=== PATIENT | female | born 1975 | race Caucasian/White ===

== ENCOUNTER 2018-01-07 12:41 | Outpatient (CLI) | payer OTHER | END 2018-01-07 12:42 | disposition home or self-care (01) | LOC: BICRAD 12:41 | PROVIDERS: ATTEND Family Medicine | DX: M54.5 Low back pain (principal); G80.1 Spastic diplegic cerebral palsy; M25.551 Pain in right hip | CPT/HCPCS: 72072; 72100 ==

== ENCOUNTER 2020-12-30 11:38 | Outpatient (CLI) | payer BC | END 2020-12-30 11:39 | disposition home or self-care (01) | LOC: BICRAD 11:38 | PROVIDERS: ATTEND Family Medicine | DX: M25.561 Pain in right knee (principal) ==

== ENCOUNTER 2021-04-23 10:49 | Inpatient (IN) | payer BC ==
[2021-04-23] MEDS ORDERED: Vancomycin HCl 25 MG/ML Oral PO SCH (14:00)
[2021-04-23] MEDS ORDERED: Acetaminophen 325 MG TAB PO PRN (14:00)
[2021-04-23] MEDS ORDERED: Polyethylene Glycol 3350 17 GM Packet PO PRN (14:03)
[2021-04-23] MEDS ORDERED: Diazepam 2 MG TAB PO PRN (14:03)
[2021-04-23] MEDS ORDERED: NS 0.9% w/ 20 MEQ KCL 1,000 ML/1,000 ML BAG IV SCH (14:15)
[2021-04-23] MEDS: Fidaxomicin 200 MG TAB PO SCH (20:21)
[2021-04-23] MEDS: metroNIDAZOLE 500 MG in Premix Bag 1 BAG IVPB SCH (20:22)
[2021-04-23] MEDS: Rosuvastatin 5 MG TAB PO SCH (20:22)
[2021-04-23] MEDS: Baclofen 10 MG TAB PO SCH (20:22)
[2021-04-24] MEDS: metroNIDAZOLE 500 MG in Premix Bag 1 BAG IVPB SCH ×3 (05:22→21:00)
[2021-04-24 06:27] LABS: #Eosinphils 0.1 thou/uL (0.0-0.7); #Lymphocytes 1.9 thou/uL (1.20-3.40); #Monocytes 0.9 thou/uL (0.11-0.59); #Neutrophils 8.4 thou/uL (1.40-6.50); %Basophils 0.3 % (0.0-1.0); %Eosinophils 0.8 % (0.0-10.0); %Lymphocytes 16.8 % (21.0-51.0); %Monocytes 7.7 % (0.0-10.0); %Neutrophils 74.5 % (42.0-75.0); Hemoglobin 13.4 g/dL (12.0-16.0); Mean Corpuscular HGB CONC 34.3 g/dL (32.0-36.0); Mean Corpuscular Hemoglobin 31.6 pg (27.0-31.0); Mean Corpuscular Volume 92.1 fL (78.0-98.0); Mean Platelet Volume 6.8 fL (7.4-10.4); Platelet Count 268 thou/uL (130-400); RBC Distribution Width 12.5 % (11.5-14.5); Red Blood Cell (RBC) Count 4.23 mill/uL (4.20-5.40); White Blood Cell (WBC) Count 11.3 thou/uL (4.8-10.8)
[2021-04-24 06:47] LABS: Anion Gap 9 mmol/L (10-20); BUN (Urea Nitrogen) 9 mg/dL (7.0-18.7); Calc. Creatinine Clearance 117 mL/min (70-130); Calcium 8.4 mg/dL (7.8-10.44); Carbon Dioxide 24 mmol/L (22-29); Chloride 111 mmol/L (98-107); Glucose 92 mg/dL (70-105); Potassium 4.1 mmol/L (3.5-5.1); Sodium 140 mmol/L (136-145)
[2021-04-24] MEDS: Fidaxomicin 200 MG TAB PO SCH ×2 (08:43→21:00)
[2021-04-24 11:49] VITALS: BMI 25.4
[2021-04-24] MEDS ORDERED: Ondansetron PF 4 MG/2 ML Vial IVP PRN (13:12)
[2021-04-24] MEDS: Baclofen 10 MG TAB PO SCH (20:59)
[2021-04-24] MEDS: Rosuvastatin 5 MG TAB PO SCH (21:00)
[2021-04-25] MEDS: metroNIDAZOLE 500 MG in Premix Bag 1 BAG IVPB SCH ×2 (06:23→13:16)
[2021-04-25 06:58] LABS: #Eosinphils 0.1 thou/uL (0.0-0.7); #Lymphocytes 1.6 thou/uL (1.20-3.40); #Monocytes 0.6 thou/uL (0.11-0.59); #Neutrophils 4.9 thou/uL (1.40-6.50); %Basophils 0.3 % (0.0-1.0); %Eosinophils 1.3 % (0.0-10.0); %Lymphocytes 22.2 % (21.0-51.0); %Monocytes 8.7 % (0.0-10.0); %Neutrophils 67.6 % (42.0-75.0); Hemoglobin 14.7 g/dL (12.0-16.0); Mean Corpuscular HGB CONC 34.4 g/dL (32.0-36.0); Mean Corpuscular Hemoglobin 31.6 pg (27.0-31.0); Mean Corpuscular Volume 91.9 fL (78.0-98.0); Mean Platelet Volume 6.6 fL (7.4-10.4); Platelet Count 327 thou/uL (130-400); RBC Distribution Width 12.4 % (11.5-14.5); Red Blood Cell (RBC) Count 4.65 mill/uL (4.20-5.40); White Blood Cell (WBC) Count 7.2 thou/uL (4.8-10.8)
[2021-04-25 07:30] LABS: Anion Gap 13 mmol/L (10-20); BUN (Urea Nitrogen) 10 mg/dL (7.0-18.7); Calc. Creatinine Clearance 111 mL/min (70-130); Calcium 9.1 mg/dL (7.8-10.44); Carbon Dioxide 25 mmol/L (22-29); Chloride 106 mmol/L (98-107); Glucose 97 mg/dL (70-105); Potassium 3.9 mmol/L (3.5-5.1); Sodium 140 mmol/L (136-145)
[2021-04-25] MEDS: Fidaxomicin 200 MG TAB PO SCH (08:07)
[2021-04-25 15:06] VITALS: BP 134/86; TEMP 97.8
[2021-04-25] MEDS ORDERED: Fidaxomicin 200 MG TAB PO SCH (16:00)
[2021-04-26] MEDS ORDERED: Fidaxomicin 200 MG TAB PO SCH (09:00)
== END 2021-04-25 16:46 | disposition home or self-care (01) | DRG 373 ==
LOC: T4-A 10:49
PROVIDERS: ADMIT Family Medicine; ATTEND Family Medicine
DX: A04.71 Enterocolitis due to Clostridium difficile, recurrent (principal); G80.9 Cerebral palsy, unspecified; E78.5 Hyperlipidemia, unspecified; I10 Essential (primary) hypertension; J45.909 Unspecified asthma, uncomplicated; Z99.3 Dependence on wheelchair; Z88.1 Allergy status to other antibiotic agents; Z88.5 Allergy status to narcotic agent; Z88.2 Allergy status to sulfonamides; Z88.8 Allergy status to other drugs, medicaments and biological substances; Z79.899 Other long term (current) drug therapy
CPT/HCPCS: 36415; 80048; 85025; J2405; J3480

== ENCOUNTER 2021-05-02 13:42 | Outpatient (CLI) | payer BC ==
[2021-05-02 21:15] LABS: SARS-CoV-2 PCR by NAA Not Detected (NotDetected)
== END 2021-05-02 13:43 | disposition home or self-care (01) ==
LOC: LABBT 13:42
PROVIDERS: ATTEND Internal Medicine Gastroenterology
DX: Z01.812 Encounter for preprocedural laboratory examination (principal); A49.8 Other bacterial infections of unspecified site; G80.9 Cerebral palsy, unspecified; Z20.822 Contact with and (suspected) exposure to COVID-19
CPT/HCPCS: U0003; U0005

== ENCOUNTER 2021-05-07 10:53 | Day surgery (SDC) | payer BC ==
[2021-05-06 14:04] VITALS: BMI 25.4
[2021-05-07] MEDS ORDERED: Midazolam HCl 2 mg/2 ml Vial ONE (12:25)
[2021-05-07] MEDS ORDERED: PROPOFOL 200 MG/20 ML VIAL ONE (12:39)
[2021-05-07] MEDS ORDERED: Lidocaine 1% PF 5 ML VIAL ONE (12:39)
== END 2021-05-07 14:35 | disposition home or self-care (01) ==
LOC: SDC 10:53
PROVIDERS: ATTEND Internal Medicine Gastroenterology
PROC: 3E0H8GC Introduction of Other Therapeutic Substance into Lower GI, Via Natural or Artificial Opening Endoscopic (ICD-10-PCS; principal; 2021-05-07)
DX: A04.72 Enterocolitis due to Clostridium difficile, not specified as recurrent (principal); J45.909 Unspecified asthma, uncomplicated; G80.9 Cerebral palsy, unspecified; E78.00 Pure hypercholesterolemia, unspecified; I10 Essential (primary) hypertension; Z88.1 Allergy status to other antibiotic agents; Z88.2 Allergy status to sulfonamides; Z88.5 Allergy status to narcotic agent; Z88.8 Allergy status to other drugs, medicaments and biological substances; Z98.890 Other specified postprocedural states; Z79.899 Other long term (current) drug therapy; Z91.02 Food additives allergy status
CPT/HCPCS: J2250; J2704

== ENCOUNTER 2022-07-06 14:56 | Inpatient (IN) | payer BC, OTHER ==
[~2022-07-06 14:56] MED LIST: Iopamidol-370 76% 500 ML 1 ML ONE
[2022-07-06] MEDS ORDERED: Ondansetron PF 4 MG/2 ML Vial ONE ×2 (15:54→20:09)
[2022-07-06 16:28] LABS: Hemoglobin 16.4 g/dL (12.0-16.0); Mean Corpuscular HGB CONC 34.8 g/dL (32.0-36.0); Mean Corpuscular Hemoglobin 31.8 pg (27.0-31.0); Mean Corpuscular Volume 91.5 fl (78.0-98.0); Mean Platelet Volume 6.8 fL (7.4-10.4); Platelet Count 338 10x3/uL (130-400); RBC Distribution Width 12.4 % (11.5-14.5); Red Blood Cell (RBC) Count 5.16 mill/uL (4.20-5.40)
[2022-07-06] MEDS ORDERED: Acetaminophen 325 MG TAB ONE (16:32)
[2022-07-06 16:33] LABS: BHCG - Serum Negative (NEGATIVE)
[2022-07-06 16:34] LABS: Pregs Control Background? CLEAR/WHITE (CLR/WHITE); Pregs Control Bar Appear? YES (CONTROL BAR)
[2022-07-06 16:44] LABS: Band 1 % (5-11); Lymphocytes 4 % (21-51); MDiff Complete? YES; Monocytes 2 % (0-10); Neutrophil 92 % (42-75); Platelet Morphology Comment Appears Adequate; RBC Morphology Normal; Reactive Lymphocytes 1 % (0-10)
[2022-07-06 16:47] LABS: ALT (SGPT) 29 U/L (8-55); AST (SGOT) 21 U/L (5-34); Albumin 4.6 g/dL (3.5-5.0); Alkaline Phosphatase 48 U/L (40-110); Anion Gap 17 mmol/L (10-20); BUN (Urea Nitrogen) 22 mg/dL (7.0-18.7); Calc. Creatinine Clearance 0 mL/min (70-130); Calcium 10.2 mg/dL (7.8-10.44); Carbon Dioxide 27 mmol/L (22-29); Chloride 100 mmol/L (98-107); Estimated GFR 108; Globulin 3.7 g/dL (2.4-3.5); Glucose 144 mg/dL (70-105); Lipase 22 U/L (8-78); Magnesium 1.6 mg/dL (1.6-2.6); Potassium 3.5 mmol/L (3.5-5.1); Protein, Total 8.3 g/dL (6.0-8.3); Sodium 140 mmol/L (136-145)
[2022-07-06 20:16] LABS: Bacteria/HPF None Seen HPF (None Seen); Bilirubin Negative (Negative); Blood, Urine 2+ (Negative); Clarity Clear (Clear); Glucose, Urine (Dipstick) Normal (Negative); Ketone, Urine 10 mg/dL (Negative); Leukocyte Negative Leu/uL (Negative); Mucous/LPF Rare LPF (<2+); Nitrite Negative (Negative); Protein, Urine (Dipstick) 10 mg/dL (Neg-Trace); RBC/HPF 21-50 HPF (0-3); Squamous Epithelial 0-3 HPF (0-3); Urobilinogen Normal mg/dL (Less than 2); WBC/HPF 0-3 HPF (0-3); pH, Urine 5.5 (5.0-9.0)
[2022-07-06 20:17] LABS: Specific Gravity, Urine Greater than 1.060 (1.002-1.036)
[2022-07-06] MEDS ORDERED: Ketorolac Tromethamine 30 MG/ML VIAL ONE (21:07)
[2022-07-06] MEDS ORDERED: Ondansetron PF 4 MG/2 ML Vial IVP PRN (21:22)
[2022-07-06] MEDS ORDERED: Acetaminophen 325 MG TAB PO PRN (21:22)
[2022-07-07] MEDS ORDERED: Ondansetron ODT 4 MG TAB PO PRN (01:01)
[2022-07-07] MEDS ORDERED: Ondansetron PF 4 MG/2 ML Vial IVP PRN (01:01)
[2022-07-07] MEDS ORDERED: Acetaminophen 325 MG TAB PO PRN (01:01)
[2022-07-07] MEDS ORDERED: Baclofen 10 MG TAB PO SCH ×2 (02:45→21:00)
[2022-07-07 04:02] VITALS: BMI 29.2
[2022-07-07 04:26] LABS: SARS-CoV-2 NAA Rapid Test Not Detected (NotDetected)
[2022-07-07] MEDS ORDERED: Furosemide 40 MG/4 ML VIAL SLOW IVP SCH (06:00)
[2022-07-07 06:12] LABS: #Eosinphils 0.1 thou/uL (0.0-0.7); #Lymphocytes 0.6 thou/uL (1.20-3.40); #Monocytes 0.7 thou/uL (0.11-0.59); #Neutrophils 7.5 thou/uL (1.40-6.50); %Basophils 0.1 % (0.0-1.0); %Eosinophils 1.7 % (0.0-10.0); %Lymphocytes 6.9 % (21.0-51.0); %Monocytes 7.4 % (0.0-10.0); Hemoglobin 13.6 g/dL (12.0-16.0); Mean Corpuscular HGB CONC 34.3 g/dL (32.0-36.0); Mean Corpuscular Hemoglobin 32.2 pg (27.0-31.0); Mean Corpuscular Volume 93.8 fl (78.0-98.0); Platelet Count 253 10x3/uL (130-400); RBC Distribution Width 12.5 % (11.5-14.5); Red Blood Cell (RBC) Count 4.24 mill/uL (4.20-5.40); White Blood Cell (WBC) Count 8.9 10x3/uL (4.8-10.8)
[2022-07-07] MEDS: Ketorolac Tromethamine 30 MG/ML VIAL IVP SCH ×3 (06:22→18:35)
[2022-07-07 06:36] LABS: Anion Gap 12 mmol/L (10-20); BUN (Urea Nitrogen) 18 mg/dL (7.0-18.7); Calc. Creatinine Clearance 128 mL/min (70-130); Calcium 8.1 mg/dL (7.8-10.44); Carbon Dioxide 25 mmol/L (22-29); Chloride 105 mmol/L (98-107); Estimated GFR 112; Glucose 126 mg/dL (70-105); Sodium 139 mmol/L (136-145)
[2022-07-07] MEDS: Potassium Chloride 20 MEQ TAB PO SCH ×3 (08:17→21:55)
[2022-07-07] MEDS: Sodium Chloride 0.9% 1,000 ML IV SCH ×2 (08:17→21:56)
[2022-07-07] MEDS ORDERED: Sertraline 100 MG TAB PO SCH (21:00)
[2022-07-07] MEDS ORDERED: Rosuvastatin 5 MG TAB PO SCH (21:00)
[2022-07-07 23:03] LABS: Campy jejuni + coli by PCR Negative (Negative); STEC Shiga Toxin 1+2 Negative (Negative); Salmonella spp. by PCR Negative (Negative); Shigella spp + EIEC by PCR Negative (Negative)
[2022-07-08] MEDS ORDERED: Baclofen 10 MG TAB PO SCH (12:45)
[2022-07-08] MEDS: Sodium Chloride 0.9% 1,000 ML IV SCH (13:10)
[2022-07-08] MEDS ORDERED: Diphenoxylate HCl/Atropine Tablet PO PRN (16:25)
[2022-07-08 16:42] VITALS: BP 118/76; TEMP 97.9
== END 2022-07-08 19:00 | disposition home or self-care (01) | DRG 694 ==
LOC: ERS 14:56 → ERHOLD 21:24 → SURG A 07-07 01:45 → OBSVTOIN 07-07 10:33
PROVIDERS: ADMIT Internal Medicine; ATTEND Internal Medicine
DX: N13.2 Hydronephrosis with renal and ureteral calculous obstruction (principal); Z20.822 Contact with and (suspected) exposure to COVID-19; N13.0 Hydronephrosis with ureteropelvic junction obstruction; G80.9 Cerebral palsy, unspecified; F41.9 Anxiety disorder, unspecified; I10 Essential (primary) hypertension; E78.5 Hyperlipidemia, unspecified; K52.9 Noninfective gastroenteritis and colitis, unspecified; Z88.1 Allergy status to other antibiotic agents; Z88.5 Allergy status to narcotic agent; Z88.2 Allergy status to sulfonamides; Z88.8 Allergy status to other drugs, medicaments and biological substances; Z91.018 Allergy to other foods; Z79.899 Other long term (current) drug therapy; Z99.3 Dependence on wheelchair
CPT/HCPCS: 36415; 74177; 80048; 80053; 81003; 81015; 83605; 83690; 83735; 84703; 85025; 87040; 87086; 87324; 87449; 87505; 94760; J1885; J2405; J7050; Q9967; U0002